=== PATIENT | male | born 1985 | race African-American/Black ===

== ENCOUNTER 2018-03-05 13:23 | Emergency (ER) | payer SELFPAY ==
[~2018-03-05] VITALS: Ht 177.8 cm; Wt 81.6 kg
[2018-03-05] MEDS ORDERED: NKM (13:39)
[2018-03-05] MEDS ORDERED: Ketorolac 30mg Inj IM ONE (14:00)
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
[2018-03-05] MEDS ORDERED: LIDOCAINE700 M1 TP (15:55)
[2018-03-05] MEDS ORDERED: IBUPROFEN600 MG ORAL (15:55)
[2018-03-05 16:03] VITALS: BP 145/60
--- NOTE | 2018-03-05 16:13 | Diagnostic Imaging Report ---
Indication: Foot pain and trauma Technique: 3 views left foot Comparison: none Findings: No acute fractures. No dislocations. There is hallux valgus and metatarsus adductus. Impression: No acute process
--- NOTE | 2018-03-05 16:57 | Diagnostic Imaging Report ---
Indication: Ankle pain Technique: 3 views of the right ankle Comparison: none Findings: No acute fractures. No dislocations. The joint spaces are preserved. Impression: Negative
== END 2018-03-05 16:03 | disposition home or self-care (01) ==
LOC: EMR 14:05
DX: S93.401A Sprain of unspecified ligament of right ankle, initial encounter (principal); V03.00XA Pedestrian on foot injured in collision with car, pick-up truck or van in nontraffic accident, initial encounter; Y92.481 Parking lot as the place of occurrence of the external cause
CPT/HCPCS: 73610; 73630; 96372; 99283; J1885; 99285